=== PATIENT | male | born 1945 | race Caucasian/White ===

== ENCOUNTER 2016-09-10 16:25 | Emergency (ER) | END 2016-09-10 22:32 | disposition home or self-care (01) | CPT/HCPCS: 70450; 72128; 96372; 99283; 99284; A9270; Q0162 ==

== ENCOUNTER 2017-08-13 10:56 | Emergency (ER) | payer MEDICARE, OTHER ==
[2017-08-13] MEDS ORDERED: oxyCODONE 5 MG TABLET PO STA (12:26)
[2017-08-13] MEDS ORDERED: oxyCODONE 5 MG TABLET ONE (12:38)
--- NOTE | 2017-08-13 12:40 | XRAY Preliminary Report ---
Exam: XR PELVIS 1 VIEW IMPRESSION: 1. No acute osseous abnormalities . Normal alignment. [facility] SITE ID: [id number]
--- NOTE | 2017-08-13 12:43 | XRAY Preliminary Report ---
Exam: XR LUMBAR SPINE 2 VIEW IMPRESSION: 1. No acute lumbar spine abnormalities are identified. 2. Intervertebral disk degenerative changes of the lumbar spine. 3. Lumbar facet arthropathy. [facility] SITE ID: [id number]
--- NOTE | 2017-08-13 12:43 | XRAY Report ---
EXAM: PELVIS RADIOGRAPHY EXAM DATE: 08/13/2017 12:33 PM. CLINICAL HISTORY: Fell hunting, low L spine and yoseph SI region pain. COMPARISON: None. TECHNIQUE: 1 view. FINDINGS: Bones: No acute fracture or bony lesions. Arcuate lines of the sacrum are intact. Degenerative spurri ng. Joints: Degenerative changes of the lower lumbar spine and both hip joints. No dislocation. Soft Tissues: Surgical clips are seen in the soft tissues of the inferior pelvis. IMPRESSION: 1. No acute osseous abnormalities . Normal alignment. [facility] Referring Provider Line: [phone] SITE ID: [id number]
--- NOTE | 2017-08-13 12:46 | XRAY Report ---
EXAM: LUMBOSACRAL SPINE RADIOGRAPHY EXAM DATE: 08/13/2017 12:33 PM. CLINICAL HISTORY: Fell hunting, low L spine and yoseph SI region pain. COMPARISONS: None. TECHNIQUE: 3 views. FINDINGS: Alignment: No spondylolisthesis. Levoscoliosis of the upper lumbar spine. Bones: Multilevel degenerative osteophyte formation. No fractures or bone lesions. Disks: Mild disk space narrowing of the lumbar spine greatest at L5-S1. Facets: Degenerative facet arthropathy. Sacroiliac Joints: Left greater than right degenerative changes. Soft Tissues: Normal. The visualized bowel gas pattern is normal. IMPRESSION: 1. No acute lumbar spine abnormalities are identified. 2. Intervertebral disk degenerative changes of the lumbar spine. 3. Lumbar facet arthropathy. [facility] Referring Provider Line: [phone] SITE ID: [id number]
--- NOTE | 2017-08-13 13:13 | ED Physician Documentation ---
History of Present Illness - Stated complaint Stated Complaint: BACK PX - Chief complaint Chief Complaint: Back Pain - Additonal information Additional information: hx from pt 72 y/o male was hunting elk 2 m ago stepped on a branch which rolled causing him to slip and fall onto his buttocks no head neck injury no chest abd injury pain to low L spine and yoseph low pelvis since no xrays at that time has been in pain but doing OK until did PT yesterday very sore, had to get up and sit in his chair about 4 AM, then did his exercises and became even more sore and could barely get off commode took an oxycodone left over from fall off ladder a year ago no numbness weakness except 2/2 pain some urinary leaking but that is not new Review of Systems Constitutional: denies: Fever Cardiac: denies: Chest pain / pressure Respiratory: denies: Dyspnea GI: denies: Abdominal Pain, Nausea, Vomiting : reports: Incontinent (not new) Musculoskeletal: reports: Back pain Neurologic: denies: Focal weakness, Numbness Endocrine: denies: Easy bruising / bleeding Immunocompromised: denies: Immunocompromised PD PAST MEDICAL HISTORY - Past Medical History Past Medical History: Yes Cardiovascular: None Respiratory: None Neuro: None Endocrine/Autoimmune: Type 2 diabetes GI: Colon polyps : None Musculoskeletal: None Derm: Other - Past Surgical History Past Surgical History: Yes General: Colonoscopy - Present Medications Home Medications: Ambulatory Orders Medication Instructions Recorded Confirmed Cetirizine HCl [Zyrtec] 10 mg PO DAILY 02/05/14 08/13/17 Glipizide 10 mg ORAL BID 02/05/14 08/13/17 Metformin HCl [Metformin HCl ER] 1,000 mg ORAL BID 02/05/14 08/13/17 Methocarbamol [Robaxin] 500 mg PO Q6H PRN #25 tablet 09/10/16 08/13/17 Naproxen 375 mg PO BID #20 tablet 09/10/16 08/13/17 Sitagliptin Phosphate [Januvia] 0 mg ORAL DAILY 09/10/16 08/13/17 - Allergies Allergies/Adverse Reactions: Allergies Allergy/AdvReac Type Severity Reaction Status Date / Time lidocaine Allergy Rash Verified 08/13/17 11:06 prochlorperazine edisylate * AdvReac Emesis Verified 08/13/17 11:06 [From Compazine] prochlorperazine maleate * AdvReac Emesis Verified 08/13/17 11:06 [From Compazine] - Social History Does the pt smoke?: No Smoking Status: Never smoker Does the pt drink ETOH?: No Does the pt have substance abuse?: No - Immunizations Immunizations are current?: Yes - POLST Patient has POLST: No PD ED PE NORMAL - Vitals Vital signs reviewed: Yes - General General: Alert and oriented X 3 - HEENT HEENT: PERRL - Neck Neck: Supple, no meningeal sign - Cardiac Cardiac: RRR - Respiratory Respiratory: No respiratory distress, Clear bilaterally - Abdomen Abdomen: Soft, Non tender, Other (no pulsatile mass) - Back Back: Other (low L spine and yoseph SI region TTP, very limited ROM 2/2 pain, no focal redness or swelling or warmth) - Neuro Neuro: Other (limited by exam: hip flex, knee ext foot dorsi plantar all intact but diff to position pt and test full strength 2/2 pain, sensation, denies saddle anesthesia, no clonus) Results - Vitals Vitals: Vital Signs - 24 hr 08/13/17 11:01 Temperature 36 C L Heart Rate 71 Respiratory 16 Rate Blood Pressure 152/89 H O2 Saturation 99 Oxygen O2 Source Room air - Rads (name of study) L spine Radiology: See rad report (no acute fx dislocation, degen changes) pelvis Radiology: See rad report (no acute) Departure - Departure Clinical Impression: Back pain Qualifiers: Back pain location: low back pain Chronicity: acute Back pain laterality: bilateral Sciatica presence: without sciatica Qualified Code(s): M54.5 - Low back pain Condition: Good Instructions: ED Low Back Pain Injury Follow-Up: Tino Quinteros MD [Primary Care Provider] - Comments: Thankfully the xrays are OK - no fractures That certainly does not minimize the pain though I recommend that you continue the motrin or naproxen you already take, as well as a muscle relaxant such as robaxin or some. It is OK to also take plain tylenol. And for the next few days until the severe pain subsides, I have prescribed more oxycodone - you can take 1-2 pills every [address]. May cause constipation so take a stool softener such as colace. Please follow up with your PMD for a recheck in about a week - if the pain continues you may need further imaging such as CT or MRI Return to the ER if worse, especially if you develop numbness or weakness to the legs
[2017-08-13 14:05] VITALS: BP 147/80
== END 2017-08-13 15:09 | disposition home or self-care (01) ==
LOC: ED 10:56
DX: M54.5 Low back pain (principal); E11.9 Type 2 diabetes mellitus without complications; Z79.84 Long term (current) use of oral hypoglycemic drugs; Z86.010 Personal history of colon polyps
CPT/HCPCS: 72100; 72170; 99283; A9270

== ENCOUNTER 2023-01-14 10:33 | Outpatient (CLI) | payer MEDICARE, OTHER ==
--- NOTE | 2023-01-14 11:47 | XRAY Report ---
PROCEDURE: Lumbar Spine 2 View INDICATIONS: BACK PAIN TECHNIQUE: 2 views of the lumbar spine were acquired. COMPARISON: None. FINDINGS: Bones: 5 [id number] vertebrae are present. Convex right curvature. No listhesis. Multilevel genesis dging osteophytes. Mild disc height loss at all levels. Facet arthrosis L4-S1. Soft tissues: Overlying bowel gas pattern is normal. No suspicious soft tissue calcifications. 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 Reviewed by: Arcadio Gallardo on 01/14/2023 11:45 AM PDT Approved by: Arcadio Gallardo on 01/14/2023 11:45 AM PDT Station ID: [id number]
== END 2023-01-14 10:34 | disposition home or self-care (01) ==
LOC: DI 10:33
PROVIDERS: ATTEND Physician Assistant Medical
DX: M47.816 Spondylosis without myelopathy or radiculopathy, lumbar region (principal); M47.817 Spondylosis without myelopathy or radiculopathy, lumbosacral region; M51.36 Other intervertebral disc degeneration, lumbar region; M51.37 Other intervertebral disc degeneration, lumbosacral region

== ENCOUNTER 2024-01-01 09:14 | Emergency (ER) | payer MEDICARE, OTHER ==
[2024-01-01 09:23] VITALS: O2SAT 98
--- NOTE | 2024-01-01 09:24 | ED Physician Documentation ---
PD HPI URI - Stated complaint Stated Complaint: COUGH - Chief complaint Chief Complaint: Resp - History obtained from History obtained from: Patient - History of Present Illness Timing - onset: How many weeks ago (09/10) Timing duration: Weeks (09/10) Timing details: Gradual onset, Still present Associated symptoms: Productive cough, Dyspnea. No: Fever, Chills, NVD Contributing factors: No: Sick contact, Immunocompromised Review of Systems Constitutional: reports: Chills, Myalgias Nose: reports: Congestion Throat: denies: Sore throat Cardiac: denies: Chest pain / pressure Respiratory: reports: Dyspnea, Cough, Wheezing PD PAST MEDICAL HISTORY - Past Medical History Past Medical History: Yes Cardiovascular: None Respiratory: None Endocrine/Autoimmune: Type 2 diabetes GI: Colon polyps : None Musculoskeletal: None Derm: Other - Past Surgical History Past Surgical History: Yes General: Colonoscopy - Present Medications Home Medications: Ambulatory Orders Medication Instructions Recorded Confirmed Metformin HCl [Metformin HCl ER] 1,000 mg ORAL BID 02/05/14 01/01/24 glipiZIDE [Glipizide] 10 mg ORAL BID 02/05/14 01/01/24 Albuterol Sulfate [Proair 2 puffs IH QID 10 Days #1 each 01/01/24 Respiclick] Amoxicillin 500 mg PO TID #18 cap 01/01/24 Ascorbic Acid [Vitamin C] 1,000 mg PO DAILY 01/01/24 01/01/24 Atorvastatin [Lipitor] 10 mg PO DAILY 01/01/24 01/01/24 Benzonatate [Tessalon] 100 mg PO TID PRN #20 cap 01/01/24 Cholecalciferol (Vitamin D3) 125 mcg PO DAILY 01/01/24 01/01/24 [Vitamin D3] Glucosamine/D3/Boswellia Jolanta 1 each PO DAILY 01/01/24 01/01/24 [Osteo Bi-Flex Tablet] - Allergies Allergies/Adverse Reactions: Allergies Allergy/AdvReac Type Severity Reaction Status Date / Time lidocaine Allergy Rash Verified 01/01/24 09:22 prochlorperazine edisylate * AdvReac Emesis Verified 01/01/24 09:22 [From Compazine] prochlorperazine maleate * AdvReac Emesis Verified 01/01/24 09:22 [From Compazine] - Social History Does the pt smoke?: No Smoking Status: Never smoker Does the pt drink ETOH?: No Does the pt have substance abuse?: No - Immunizations Immunizations are current?: Yes - POLST Patient has POLST: No PD ED PE NORMAL - Vitals Vital signs reviewed: Yes - General General: Alert and oriented X 3, No acute distress, Well developed/nourished - HEENT HEENT: Pharynx benign - Cardiac Cardiac: RRR, No murmur - Respiratory Respiratory: No respiratory distress, Clear bilaterally Results - Vitals Vitals: Oxygen O2 Source Room air - Rads (name of study) chest xray Relevant Findings:: Prelim report reviewed, EMP independent interpretation of test (no pneumonia) PD Medical Decision Making - ED course Complexity details: reviewed results, considered differential (initially with URI type symptoms and cough has persisted with increased proeductiveness. Having wheezing type symptoms. CXR clear but symptoms sound like secondary bronchitis, on likley initial viral URI. ), d/w patient Departure - Departure Disposition: 01 Home, Self Care Clinical Impression: Cough, Bronchitis Upper respiratory infection Qualifiers: URI type: unspecified URI Qualified Code(s): J06.9 - Acute upper respiratory infection, unspecified Condition: Stable Record reviewed to determine appropriate education?: Yes Follow-Up: DUANE FANG PA [Primary Care Provider] - Prescriptions: Amoxicillin 500 mg PO TID #18 cap Albuterol Sulfate [Proair Respiclick] 2 puffs IH QID 10 Days #1 each Benzonatate [Tessalon] 100 mg PO TID PRN #20 cap PRN Reason: Cough Comments: Your chest x-ray is clear without any signs of pneumonia. It does sound like timing reddy and symptoms he may have developed some bacterial secondary component in the sinuses or bronchioles. We can go with an antibiotic as well as an inhaler and medication for cough. Stay well-hydrated. Forms: PCP List Discharge Date/Time: 01/01/24 11:16
[2024-01-01] MEDS: AMOXICILLIN 250 MG CAPSULE PO STA (10:08)
[2024-01-01] MEDS: dexAMETHasone 4 MG TABLET PO STA (10:08)
[2024-01-01] MEDS: ALBUTEROL 1 PUFF INH STA (10:13)
--- NOTE | 2024-01-01 10:39 | XRAY Report ---
PROCEDURE: Chest 1V INDICATIONS: chest pain TECHNIQUE: One view of the chest was acquired. COMPARISON: None. FINDINGS: Surgical changes and devices: None. Lungs and pleura: No pleural effusions or pneumothorax. Lungs are clear. Mediastinum: Mediastinal contours appear normal. Heart size is normal. Bones and chest wall: No suspicious bony lesions. Overlying soft tissues appear unremarkable. IMPRESSION: No acute cardiopulmonary process. Reviewed by: Isela Barfield MD on 01/01/2024 10:38 AM PDT Approved by: Isela Barfield MD on 01/01/2024 10:38 AM PDT Station ID: [id number]
[2024-01-01 11:19] VITALS: BP 131/74
== END 2024-01-01 11:16 | disposition home or self-care (01) ==
LOC: ED 09:14
DX: J06.9 Acute upper respiratory infection, unspecified (principal); J40 Bronchitis, not specified as acute or chronic; E11.9 Type 2 diabetes mellitus without complications; Z79.84 Long term (current) use of oral hypoglycemic drugs; Z79.899 Other long term (current) drug therapy
CPT/HCPCS: 71045; 94640; 99283; 99284; A9270; J8540